=== PATIENT | male | born 1995 | race Caucasian/White ===

== ENCOUNTER 2018-12-08 17:30 | Emergency (ER) | payer BC ==
--- NOTE | 2018-12-08 22:57 | ED ---
GI/ HPI - HPI Summary HPI Summary: Patient complains of progressive left groin pain times several weeks, worse over the past week. Patient seen at urgent care sent to the ER to rule out torsion. Patient states pain is intermittent, worse with sitting and lifting, walking and running. Patient denies fever, cough, sore throat, CP, SOB, N/V/D, abdominal pain, change in urine, change in BM, penile discharge, testicular swelling, pain or erythema. Medical history is none. Abdominal surgical history is none. - History of Current Complaint Chief Complaint: EDUrogenitalProblems Time Seen by Provider: 12/08/18 21:32 Stated Complaint: PAIN IN GROIN AREA PER PT Hx Obtained From: Patient Onset/Duration: Started Weeks Ago Timing: Intermittent Severity: Moderate Current Severity: Moderate Pain Intensity: 6 Location of Pain: Groin Pain Characteristics: Cramping Associated Signs and Symptoms: Positive: Negative - Allergy/Home Medications Allergies/Adverse Reactions: Allergies Allergy/AdvReac Type Severity Reaction Status Date / Time No Known Allergies Allergy Verified 12/08/18 17:41 Home Medications: Home Medications NK [No Home Medications Reported] 12/08/18 [History Confirmed 12/08/18] PMH/Surg Hx/FS Hx/Imm Hx Endocrine/Hematology History: Denies: Hx Anticoagulant Therapy Cardiovascular History: Denies: Hx Pacemaker/ICD History: Denies: Hx Dialysis Sensory History: Denies: Hx Eye Prosthesis Opthamlomology History: Denies: Hx Legally Blind EENT History: Denies: Hx Deafness Neurological History: Denies: Hx Dementia Psychiatric History: Denies: Hx Autism - Immunization History Date of Tetanus Vaccine: utd Date of Influenza Vaccine: fall 2017 Infectious Disease History: No Infectious Disease History: Denies: Traveled Outside the [place] in Last 30 Days - Social History Alcohol Use: None Substance Use Type: Reports: None Smoking Status (MU): Never Smoked Tobacco Review of Systems Constitutional: Negative Eyes: Negative ENT: Negative Cardiovascular: Negative Respiratory: Negative Gastrointestinal: Negative Genitourinary: Other Musculoskeletal: Negative Skin: Negative Neurological: Negative Psychological: Normal All Other Systems Reviewed And Are Negative: Yes Physical Exam - Summary Physical Exam Summary: Normal appearing genitalia. No pain with palpation of testicles, penis, inguinal canal. No pain with palpation at all. No erythema, ecchymosis, deformity, swelling, lesions noted. No indication of hernia. No pain with palpation of abdomen. Triage Information Reviewed: Yes Vital Signs On Initial Exam: Initial Vitals Temp Pulse Resp BP Pulse Ox 98.8 F 71 18 137/89 99 12/08/18 17:37 12/08/18 17:37 12/08/18 17:37 12/08/18 17:37 12/08/18 17:37 Vital Signs Reviewed: Yes Appearance: Positive: Well-Appearing Skin: Positive: Warm Head/Face: Positive: Normal Head/Face Inspection Eyes: Positive: Normal Neck: Positive: Supple Respiratory/Lung Sounds: Positive: Clear to Auscultation Cardiovascular: Positive: Normal Abdomen Description: Positive: Nontender Musculoskeletal: Positive: Normal Neurological: Positive: Normal Psychiatric: Positive: Normal AVPU Assessment: Alert - Shabnam Coma Scale Best Eye Response: 4 - Spontaneous Best Motor Response: 6 - Obeys Commands Best Verbal Response: 5 - Oriented Coma Scale Total: 15 Diagnostics - Vital Signs Vital Signs Temp Pulse Resp BP Pulse Ox 12/08/18 19:41 98.1 F 79 16 141/81 99 12/08/18 17:37 98.8 F 71 18 137/89 99 - Laboratory Lab Statement: Any lab studies that have been ordered have been reviewed, and results considered in the medical decision making process. GIGU Course/Dx - Course Course Of Treatment: Patient complains of progressive left groin pain times several weeks, worse over the past week. Patient seen at urgent care sent to the ER to rule out torsion. Patient states pain is intermittent, worse with sitting and lifting, walking and running. Patient denies fever, cough, sore throat, CP, SOB, N/V/D, abdominal pain, change in urine, change in BM, penile discharge, testicular swelling, pain or erythema. Medical history is none. Abdominal surgical history is none. Physical exam: Normal appearing genitalia. No pain with palpation of testicles, penis, inguinal canal. No pain with palpation at all. No erythema, ecchymosis, deformity, swelling, lesions noted. No indication of hernia. No pain with palpation of abdomen. Vital signs within normal limits. Physical exam normal. Ultrasound negative for torsion or abnormality. Diagnosis groin strain. - Diagnoses Provider Diagnoses: Groin strain Discharge - Sign-Out/Discharge Documenting (check all that apply): Patient Departure Patient Received Moderate/Deep Sedation with Procedure: No - Discharge Plan Condition: Stable Disposition: HOME Patient Education Materials: Groin Strain (ED) Forms: *Work Release Referrals: No Primary Care Phys,NOPCP [Primary Care Provider] - Additional Instructions: Rest, ibuprofen. Symptoms may resolve and then return with activity. In which case you cou;ld follow up with physical therapy available at [facility] at [phone]. Return to the ED for any new or worsening symptoms. - Billing Disposition and Condition Condition: STABLE Disposition: Home
[2018-12-08 23:27] VITALS: BP 127/67
== END 2018-12-08 23:26 | disposition home or self-care (01) ==
LOC: ED 17:30
DX: S39.011A Strain of muscle, fascia and tendon of abdomen, initial encounter (principal); R10.30 Lower abdominal pain, unspecified; X58.XXXA Exposure to other specified factors, initial encounter; Y92.9 Unspecified place or not applicable
CPT/HCPCS: 76870; 99282